=== PATIENT | male | born 1970 | race Caucasian/White ===

== ENCOUNTER 2021-05-30 21:27 | Emergency (ER) | payer SELFPAY ==
[~2021-05-30] VITALS: Ht 175.3 cm; Wt 105.0 kg
[2021-05-30 21:44] VITALS: BP 154/105
== END 2021-05-30 23:17 | disposition home or self-care (01) ==
LOC: ER 21:27
DX: L53.9 Erythematous condition, unspecified (principal); J45.909 Unspecified asthma, uncomplicated
CPT/HCPCS: 99283